=== PATIENT | male | born 1950 | race Caucasian/White ===

== ENCOUNTER 2016-11-04 15:56 | Emergency (ER) | payer MEDICARE, MEDICAID ==
[2016-11-04 16:08] VITALS: BP 117/94
[2016-11-04] MEDS ORDERED: Acetaminophen/HYDROcodone 325-5 MG Tab PO ONE (16:29)
--- NOTE | 2016-11-04 16:35 | EDM.PDOC ---
ED HPI Trauma - General Chief Complaint: Upper Extremity Injury/Pain Stated Complaint: RECHECK HAND AND RIB INJURY Time Seen by Provider: 11/04/16 16:30 Source: Reports: Patient History Limitations: Reports: No limitations - History of Present Illness INITIAL COMMENTS - FREE TEXT/NARRATIVE: Patient is a 66-year-old male presents ED complaining of left rib pain. Patient was evaluated yesterday in the ED complaining of laceration to the palmar aspect of his left hand. Patient states this occurred when he fell and attempted to catch himself and caught it on a sharp piece of barbwire cutting his hand. In addition patient fell while in related to the [place] parking lot bumping the left aspect of his chest. Apparently patient was drinking and was intoxicated at that time. He was seen the following day due to bleeding. Laceration was closed no complications. He was sent home with a prescription for Bactrim DS. Patient has not filled his medication this morning because he didn't have a ride. Patient states since being evaluated she's been experiencing worsening pain to the left side of his chest. Along the left lower ribs worsen increase with deep inspiration and palpation. States he has a history of fractured ribs in the past and believes he may have fractured wrist the left side. States he took Advil this morning. Also is utilize 3 on shot of vodka this morning to help relieve the pain. Patient denies being intoxicated. Patient does consume approximately 2 beers in the evening after dinner. States he does not do this on a regular basis. Denies being alcoholic. Patient has a history of anxiety and is on Xanax. He has not taken Xanax recently. In addition there ruling out the patient has sleep apnea. Patient smokes 3 cigarettes a day denies any recreational drug use and is retired. Occurred When: other Method of Injury: fall Severity: moderate Pain/Injury Location: Reports: chest, upper extremity, left Associated Symptoms: Reports: no other symptoms Allergies/ADRs: Allergies dust. Allergy (Uncoded 11/04/16 02:30) Other Home Medications: Ambulatory Orders Acetaminophen/HYDROcodone [Hebron 325-5 MG] 1 tab PO Q6H PRN #15 tablet 11/04/16 Sulfamethoxazole/Trimethoprim [Bactrim Ds Tablet] 1 each PO Q12H #13 tablet [Confirmed 11/04/16] Past Medical History - Past Health History Medical/Surgical History: Denies Medical/Surgical History Social & Family History - Family History Family Medical History: Noncontributory - Tobacco Use Smoking Status *Q: Current Every Day Smoker Years of Tobacco use: 50 Packs/Tins Daily: 0.2 - Caffeine Use Caffeine Use: Reports: Coffee, Soda, Tea - Recreational Drug Use Recreational Drug Use: No Review of Systems - Review of Systems Review Of Systems: See Below Constitutional: Denies: chills, fever Respiratory: Reports: Pleuritic Chest Pain. Denies: Shortness of Breath, Wheezing, Cough, Sputum Cardiovascular: Reports: chest pain. Denies: lightheadedness, palpitations, syncope GI/Abdominal: Denies: Abdominal pain, Nausea, Vomiting Musculoskeletal: Denies: neck pain, back pain Skin: Reports: no symptoms Neurological: Reports: No Symptoms Psychiatric: Reports: no symptoms Trauma Exam - Physical Exam Exam: See Below Exam Limited By: No limitations General Appearance: Reports: alert, WD/WN, no apparent distress Eyes: bilateral eye: EOMI, PERRL Ears: Reports: hearing grossly normal Nose: Reports: normal inspection Throat/Mouth: Reports: Normal voice, No airway compromise Neck: Reports: other (supple) Respiratory Exam: Reports: no respiratory distress, lungs clear, normal breath sounds, no accessory muscle use, rib tenderness, left (9-11 rib, no pain along the axillary line. ) Cardiovascular: Reports: normal peripheral pulses, regular rate, rhythm, no murmur Extremities: Reports: other (large chevron laceration to palmar aspect of left hand. sutures present and intact. no signs of infection. ) Neurologic: Reports: tender labor II-XII nml as tested, no motor/sensory deficits, alert , normal mood/affect, oriented x 3 Skin: Reports: Normal color, Warm/dry Course - Vital Signs Last Recorded V/S: Last Vital Signs Temp 98.7 F 11/04/16 16:03 Pulse 115 H 11/04/16 16:03 Resp 16 11/04/16 16:03 BP 117/94 H 11/04/16 16:03 Pulse Ox 92 L 11/04/16 16:03 - Orders/Labs/Meds Orders: Active Orders 24 hr Category Date Time Status CXR [Chest 1V Frontal] [CR] Stat Exams 11/04/16 16:14 Taken DME for Discharge [COMM] Stat Oth 11/04/16 16:29 Ordered Meds: Medications Discontinued Medications Generic Name Dose Route Start Last Admin Trade Name Freq PRN Reason Stop Dose Admin Hydrocodone Bitart/Acetaminophen 1 tab 11/04/16 16:29 11/04/16 16:38 Hebron 325-5 Mg PO 11/04/16 16:30 1 tab ONETIME ONE Administration - Re-Assessments/Exams Free Text/Narrative Re-Assessment/Exam: Reviewed ED visit November 04, 2016. Laceration to the left hand was closed at that time. Patient refuses obtain a chest x-ray. He was sent home with a prescription for Bactrim. Will obtain x-ray of the chest to evaluate for left rib fracture. Patient does not appear to be intoxicated. Ordered Hebron 5-325. 11/04/16 17:13 Xray of the chest reviewed with Dr. Sherwood. No obvious bony abnormalities noted. 11/04/16 17:41 Reassessment, patient states he's not received as much relief as he expected after taking Hebron. Told him obvious rib fractures on CXR. Pain 2nd to contusion. Will take time to get pain relief and will not be able to completely take it away. Will discharge patient home with instructions. Departure - Departure Time of Disposition: 17:42 Disposition: Home, Self-Care 01 Condition: good Clinical Impression: Contusion of rib on left side Qualifiers: Encounter type: initial encounter Qualified Code(s): S20.212A - Contusion of left front wall of thorax, initial encounter Laceration of left hand Qualifiers: Encounter type: subsequent encounter Foreign body presence: unspecified Qualified Code(s): S61.412D - Laceration without foreign body of left hand, subsequent encounter Prescriptions: Acetaminophen/HYDROcodone [Hebron 325-5 MG] 1 tab PO Q6H PRN #15 tablet PRN Reason: Pain (Severe 7-10) Referrals: Jeremi Boles Jr, MD [Primary Care Provider] - Forms: ED Department Discharge Additional Instructions: Take ibuprofen and Tylenol in alternating fashion for pain. Can apply ice to the affected area 4-6 times daily, 20 minutes in duration, do not apply ice directly on the skin. Can also utilize warm compresses. For severe pain take Hebron one tab every [address] this evening nor while taking the Hebron. Refrain from alcohol use and taking your Xanax while taking Hebron. Followup with your primary care provider in the next few days for reevaluation. Do not wrap your chest with an Adan wrap. Continue to take deep breaths every so often. Return to the ED as needed for any new or worsening symptoms. Chest x-ray did not reveal obvious bony abnormalities. Etiology contusion will take 4 wks to heal. Laceration left hand with sutures. Cleanse site twice daily, PAt dry, reapply bacitracin ointment with dressing. Followup with provider at the walk-in clinic in 7-10 days for suture removal. Return back to the ED for any redness, increased swelling, or purulent drainage. - My Orders Last 24 Hours: My Active Orders 11/04/16 16:14 CXR [Chest 1V Frontal] [CR] Stat 11/04/16 16:29 DME for Discharge [COMM] Stat - Assessment/Plan Last 24 Hours: My Active Orders 11/04/16 16:14 CXR [Chest 1V Frontal] [CR] Stat 11/04/16 16:29 DME for Discharge [COMM] Stat
--- NOTE | 2016-11-05 07:03 | CR ---
Chest: Portable view of the chest was obtained. Comparison: Previous chest x-ray of 11/04/15. Heart size and mediastinum are within normal limits. Lungs are clear with no acute infiltrates. Bony structures are grossly intact. Impression: 1. Nothing acute is identified on portable chest x-ray. Diagnostic code #1
== END 2016-11-04 18:16 | disposition home or self-care (01) ==
LOC: JD.ED 15:56
DX: S20.212A Contusion of left front wall of thorax, initial encounter (principal); S61.412D Laceration without foreign body of left hand, subsequent encounter; F41.9 Anxiety disorder, unspecified; F17.210 Nicotine dependence, cigarettes, uncomplicated; W19.XXXA Unspecified fall, initial encounter
CPT/HCPCS: 71010; 99283; A9270; 12002; 12042; 73130-26-LT; 73130-LT; 90715